=== PATIENT | female | born 1945 | race Caucasian/White ===

== ENCOUNTER 2022-08-18 10:38 | Outpatient (CLI) | payer MEDICARE, SELFPAY ==
[2022-08-18 13:06] LABS: Chloride* 107 mmol/L (96-114); Potassium* 4.2 mmol/L (3.6-5.1); Sodium* 141 mmol/L (135-149)
[2022-08-18 13:09] LABS: Blood Urea Nitrogen* 20 mg/dL (7-30); Calcium* 9.4 mg/dL (8.4-10.6); Carbon Dioxide* 30 mmol/L (20-32); Cholesterol* 226 mg/dL (90-199); Creatinine* 0.8 mg/dL (0.5-1.5); Estimated Glomerular Filt Rate 77 ml/min; Glucose* 88 mg/dL (60-115); Triglycerides* 84 mg/dL (40-149)
[2022-08-18 13:10] LABS: HDL Cholesterol* 84 mg/dL (>=50); LDL Cholesterol Calculated 125 mg/dL (<100)
[2022-08-18 13:40] LABS: Thyroid Stimulating Hormone* 0.069 uIU/mL (0.270-4.20)
== END 2022-08-18 10:39 | disposition home or self-care (01) ==
PROVIDERS: PCP Family Medicine; Visit Provider Family Medicine
DX: Z00.00 Encounter for general adult medical examination without abnormal findings (principal); E03.9 Hypothyroidism, unspecified; Z13.6 Encounter for screening for cardiovascular disorders
CPT/HCPCS: 80048; 80061; 84443

== ENCOUNTER 2022-10-24 08:59 | Outpatient (CLI) | payer MEDICARE, SELFPAY ==
--- NOTE | 2022-10-24 09:15 | CRLHL7_ITS ---
For Patients: As a result of the Century Cures Act, medical imaging exams and procedure reports are released immediately into your electronic medical record. You may view this report before your referring provider. If you have questions, please contact your health care provider. BILATERAL SCREENING MAMMOGRAM WITH COMPUTER-AIDED DETECTION TECHNIQUE: CC and MLO views were obtained. These mammographic images have been obtained using full-field digital technique. These mammographic images were interpreted with the benefit of computer-aided detection. COMPARISON FILM: 04/13/21, 08/05/18, 07/18/16. FINDINGS: There are scattered areas of fibroglandular density IMPRESSION: There is no radiographic evidence for malignancy. ASSESSMENT: BI-RADS Category 1: Negative RECOMMENDATION: Routine screening mammogram in 1 year. A lay language report of this examination will be provided to the patient. Elfego Gaspar M.D. Diagnostic Radiologist [email or web address] OSMIN/Dictated by: Elfego Gaspar MD @ 10/24/2022 9:35:00 AM (Electronically Signed)
== END 2022-10-24 09:00 | disposition home or self-care (01) ==
LOC: MAMMO 09:00
PROVIDERS: PCP Family Medicine; Visit Provider Family Medicine
DX: Z12.31 Encounter for screening mammogram for malignant neoplasm of breast (principal)
CPT/HCPCS: 77067

== ENCOUNTER 2022-11-13 08:32 | Outpatient (CLI) | payer MEDICARE, SELFPAY ==
[2022-11-13 10:07] LABS: TSH With Reflex to FT4* 0.864 uIU/mL (0.270-4.200)
== END 2022-11-13 08:33 | disposition home or self-care (01) ==
PROVIDERS: PCP Family Medicine; Visit Provider Family Medicine
DX: E03.9 Hypothyroidism, unspecified (principal)
CPT/HCPCS: 84443

== ENCOUNTER 2023-08-28 09:59 | Outpatient (CLI) | payer MEDICARE, SELFPAY | END 2023-08-28 10:00 | disposition home or self-care (01) | LOC: NFLDREF 10:00 | PROVIDERS: PCP Internal Medicine; Visit Provider Internal Medicine | DX: E03.9 Hypothyroidism, unspecified (principal) | CPT/HCPCS: 84443 ==

== ENCOUNTER 2023-11-21 10:36 | Outpatient (CLI) | payer MEDICARE, SELFPAY ==
--- NOTE | 2023-11-21 10:45 | MM_ITS ---
Patient: LEE VAZQUEZ Facility:?[facility] Patient ID:?[id number] Site Patient ID:?[id number]. Site :?[id number] Study:?XRay-Breast Bilateral 3D W/CAD-11/21/2023 11:04:04 AM Ordering Physician:Brittany Corona Final Report: BILATERAL SCREENING MAMMOGRAM WITH COMPUTER-AIDED DETECTION AND TOMOSYNTHESIS TECHNIQUE: CC and MLO views were obtained. These mammographic images have been obtained using full-field digital technique. These mammographic images were interpreted with the benefit of computer-aided detection. Breast Tomosynthesis was used in this interpretation. COMPARISON FILM: 04/13/21, 08/05/18, 07/18/16. FINDINGS: There are scattered areas of fibroglandular density. IMPRESSION: There is no radiographic evidence for malignancy. ASSESSMENT: BI-RADS Category 1: Negative RECOMMENDATION: Routine screening mammogram in 1 year. A lay language report of this examination will be provided to the patient. Elfego Gaspar M.D. Diagnostic Radiologist [email or web address] DSM/sp R& Transcribed: 5:57 p.m. SP/Dictated by: Elfego Gaspar MD @ 11/21/2023 12:54:00 PM Signed by:?Elfego Gaspar MD @11/22/2023 5:41:01 AM (Electronic Signature)
== END 2023-11-21 10:37 | disposition home or self-care (01) ==
LOC: MAMMO 10:37
PROVIDERS: PCP Internal Medicine; Visit Provider Internal Medicine
DX: Z12.31 Encounter for screening mammogram for malignant neoplasm of breast (principal)
CPT/HCPCS: 77063; 77067

== ENCOUNTER 2024-04-30 08:15 | Outpatient (RCR) | payer MEDICARE, SELFPAY ==
--- NOTE | 2024-04-09 08:14 | PT.OPEX ---
PT [place] Outpatient Eval PT [facility] Outpatient Eval Start: 03/19/24 15:17 Freq: Status: Active Protocol: Document 04/09/24 07:00 MLS (Rec: 04/09/24 08:13 MLS [id number]) E-signed By Sherine Saunders DPT Physical Therapy Outpatient Evaluation Insurance Information Recert Due Date 07/07/24 Insurance Name Medicare B,are Medical Diagnosis M25.572 left ankle pain Treating Diagnosis Left ankle strengthening Fascia manual therapy Referring MD Dr. Gomes Subjective Subjective Patient is a 78 year old female who presents to physical therapy with signs and symptoms consistent with left ankle pain. she states that it happened 15 years ago. She states that she was sitting on her leg, sneezed and when she went to get up her leg was asleep and she fell to the ground. She had immediate swelling, and was told it wasn't broken, but was extremely painful. She states that she currently walks 6 miles per day. She reports that she was sweeping in the garage recently and it swelled up and is painful. She did have xrays which showed arthritis. She wears a shoe at all times because going barefoot hurts. Aggravating factors include: barefoot, walking, standing. Alleviating factors include: Advil. Significant past medical history includes left hip fracture (5.5 years ago - metal implant) and arthritis. Patient would like to get some exercises to get her ankle stronger through physical therapy sessions. Pain Comments Today: 0/10 on a 0-10 pain scale with 10 = extreme pain At its worst: 8/10 At its best: 0/10 Current Work Status Retired Objective Other/Pertinent Objective FOOT ALIGNMENT/GAIT No assistive device, normal gait pattern SLS (single leg stance): no pain SL squat: no pain ANKLE ROM Right: Grossly tested WNL Left: PF: 35 DF: 20 INversion: 20 EVersion: 10 LE MMT Hip flexion: R 4+/5 L 4+/5 Hip Extension: R 4+/5 L 4+/5 Hip abduction: R 4/5 L 4/5 knee extension: R 4+/5 L 4+/5 Knee Flexion: R 4+/5 L 4+/5 Dorsiflexion/heel walk: R 4/5 L 4/5 Plantarflexion/toe walk:R 4/5 L 4/5 INV: R 4/5 L 4/5 NICK: R 4/5 L 4/5 JOINT MOBILITY/PALPATION Tenderness to palpation of plantar fascia and posterior aspects of lateral and medial malleolus SPECIAL TESTS Talar tilt Test: negative Anterior Drawer Test: negative External Rotation Test: negative Windlass test: negative Tarsal Tunnel Test: negative TX: Access Code: [email or web address] URL: [email or web address] Date: 04/09/2024 Prepared by: Sherine Saunders Exercises - Supine Ankle Pumps - 1 x daily - 7 x weekly - 3 sets - 10 reps - Seated Ankle Alphabet - 1 x daily - 7 x weekly - 3 sets - 10 reps - Supine Ankle Inversion Eversion AROM - 1 x daily - 7 x weekly - 3 sets - 10 reps - Gastroc Stretch with Foot at Wall - 1 x daily - 7 x weekly - 3 sets - 10 reps - Standing Gastroc Stretch on Step - 1 x daily - 7 x weekly - 3 sets - 10 reps Functional Test Performed & Score 26/75 Foot and Ankle Measure Assessment Assessment/Impression Pt is a 78 year old female who presents with concerns of left ankle pain. Patient also has notable objective findings including limited ROM, tenderness to palpation, and decreased strength which are also likely contributing to the problem. Patient is a good candidate for skilled therapy to target deficits described above. Skilled PT intervention is necessary for use of therapeutic exercise manual therapy, neuromuscular re- education, gait training, and therapeutic activity. Functional impairments include difficulty with: standing, walking, exercising and ADLs. See appropriate sections of PT eval for complete list of goals and POC. D/C plan and criteria is for pt to achieve the goals as listed below or until max rehab potential is met. Pt was agreeable with plan of care and goals established. Primary Functional Limitations standing walking exercising ADLs Plan of Care Rehabilitation Potential Good Physical Therapy Goals Within 10-12 weeks: 1.Pt will demonstrate independence in performance of home exercise program with the use of video and/or handouts in order to optimize functional mobility and reduce risk for re-injury. 2.Pt will demonstrate consistent HEP compliance to ensure progress in reaching established goals during course of care. 3.Patient will be able to grocery shop for 30 minutes without pain. 4.Patient will report pain levels <2/10 with all activities in order to improve functional mobility at home, work and during functional leisure activities. 5.Patient is able to sleep without waking more than one time due to pain in a 6-8 hour time frame. 6.Patient will be able to walk up to one mile without pain. 7.Patient will be able to squat and lift household items from the floor to shoulder height to perform ADLs without pain. 8.Pt will be able to ascend/ descend 1 flight of stairs in order to perform ADLs pain free. 9.Pt will exhibit 5 pt improvement in Foot and Ankle Measure to demonstrate functional improvement and progress towards goals Coordination/Communication With Referral Source Treatment Plan/Direct Interventions Joint Mobilization,Manual Therapy,Neuromuscular Re-ed, Therapeutic Activities, Therapeutic Exercises Patient Will Be Discharged From Therapy Independently Progressing Evaluation Billing Untimed Code Treatment Minutes 30 Complexity Low Certification Information Provider Signature Required Yes Provider Signature Shows Agreement With POC & Medical Necessity Physician NPI Number Write NPI# Here Physician Comment/Change : Physician Signature & Date Requested Please Sign/Date Here
== END 2024-05-28 15:43 | disposition home or self-care (01) ==
PROVIDERS: PCP Internal Medicine; Visit Provider Internal Medicine
DX: M25.572 Pain in left ankle and joints of left foot (principal); Z51.89 Encounter for other specified aftercare
CPT/HCPCS: 97110; 97140; 97161

== ENCOUNTER 2024-09-25 09:18 | Outpatient (CLI) | payer MEDICARE, SELFPAY | END 2024-09-25 09:19 | disposition home or self-care (01) | LOC: NFLDREF 10-06 13:39 | PROVIDERS: PCP Internal Medicine; Referring Provider Internal Medicine; Visit Provider Internal Medicine | DX: E03.9 Hypothyroidism, unspecified (principal) | CPT/HCPCS: 84443 ==